=== PATIENT | female | born 1950 | race Caucasian/White ===

== ENCOUNTER 2019-07-05 17:15 | Emergency (ER) | payer MEDICARE, BC ==
--- NOTE | 2019-07-05 18:31 | CT ---
CT face noncontrast HISTORY: Injury. COMPARISON: 12/21/2012. FINDINGS: Mildly depressed comminuted fracture involves the posterior aspect of the right zygomatic a rch. The globes and mandible are intact. Operative fixation of the anterior wall of the right maxillary sinus and right side of the nasal bone evident. Subtle deformity of the nasal bone is noted without overlying soft tissue swelling. This has the appearance of an old injury. Visualized paranasal sinuses remain well aerated. IMPRESSION : Acute comminuted mildly depressed fracture of the right zygomatic arch. Old injury and postoperative changes of the right maxillary sinus/nose.
--- NOTE | 2019-07-05 18:32 | RAD ---
RIGHT SHOULDER RADIOGRAPHS THREE VIEWS: 07/05/19 PROVIDED CLINICAL HISTORY: Pain status post injury. FINDINGS: No evidence for fracture or other acute osseous abnormality. If there is persistent clinical concern, conservative management and follow-up imaging are advised. IMPRESSION: As above. POS: CHERYL
--- NOTE | 2019-07-05 18:35 | CT ---
CT BRAIN 07/05/19 PROVIDED CLINICAL HISTORY: Fall with head injury. FINDINGS: Comparison 07/28/17. The ventricular system appears normal in size and morphology. There is no evidence for intracranial h emorrhage or mass effect. The extracranial soft tissues and osseous structures demonstrate no acute a bnormality. IMPRESSION: No evidence for intracranial hemorrhage or mass effect. POS: CHERYL
== END 2019-07-05 19:19 | disposition home or self-care (01) ==
LOC: MADERS 17:15
DX: S02.40EA Zygomatic fracture, right side, initial encounter for closed fracture (principal); S40.011A Contusion of right shoulder, initial encounter; E03.9 Hypothyroidism, unspecified; F32.9 Major depressive disorder, single episode, unspecified; K31.84 Gastroparesis; W01.0XXA Fall on same level from slipping, tripping and stumbling without subsequent striking against object, initial encounter
CPT/HCPCS: 70450; 70486